=== PATIENT | male | born 1950 | race Hispanic/Latino ===

== ENCOUNTER 2018-08-16 11:21 | Emergency (ER) | payer MEDICARE, BC ==
[2018-08-16] MEDS ORDERED: Sodium Chloride 0.9% 500 ML IV STA (12:10)
--- NOTE | 2018-08-16 12:31 | ED PDOC ---
Arrival/HPI - General Chief Complaint: Upper Extremity Problem/Injury Time Seen by Provider: 08/16/18 11:36 Historian: Patient, Family - History of Present Illness Narrative History of Present Illness (Text): 08/16/18 12:28 67-year-old male presents today with myalgias. Patient states for the past 2 weeks he's been having muscle aches to the upper and lower extremities. Patient was seen as an urgent care and was told to stop his cholesterol medication. He states he was tested for Lyme disease and the test was negative. Patient states he's been taking Motrin with some relief. Patient states he feels like his muscles are aching and his joints are tight. Patient states he is unable to lift both arms up above his head due to achy pain. Patient states he has difficulty putting on socks and shoes due to tightness and stiffness in the legs. He denies chest pain or shortness of breath. He denies URI or flulike symptoms. He denies chest pain or shortness of breath. No fevers or chills. He denies abdominal pain. Denies decreased appetite. Patient states symptoms are worse during the morning and sometimes improves. Patient states that last night he was getting some tingling sensation in the second and third fingers in both hands. He denies weakness in the extremities. No headaches or dizziness. Past Medical History - Provider Review Nursing Documentation Reviewed: Yes - Travel History Have you recently traveled outside [place] w/in the past 3 mons?: No - Tetanus Immunization Tetanus Immunization: Unknown - Cardiac Hx Cardiac Disorders: Yes Hx Atrial Fibrillation: Yes Hx Hypertension: Yes - Pulmonary Hx Respiratory Disorders: No - Neurological Hx Neurological Disorder: No - Psychiatric Hx Substance Use: No Family/Social History - Physician Review Nursing Documentation Reviewed: Yes Family/Social History: Unknown Family HX Smoking Status: Never Smoked Hx Alcohol Use: Yes Frequency of alcohol use: Daily Hx Substance Use: No Allergies/Home Meds Allergies/Adverse Reactions: Allergies No Known Allergies Allergy (Verified 08/16/18 11:32) Home Medications: Home Meds Medication Instructions Recorded Confirmed Digoxin 250 mcg PO DAILY 08/16/18 08/16/18 Ezetimibe/Simvastatin 1 tab PO DAILY 08/16/18 08/16/18 [Ezetimibe-Simvastatin 10-20 mg] Verapamil HCl [Verelan Pm] 240 mg PO DAILY 08/16/18 08/16/18 Review of Systems - Review of Systems Constitutional: absent: Fatigue, Fevers ENT: absent: Sore Throat, Sinus Congestion Respiratory: absent: SOB, Cough Cardiovascular: absent: Chest Pain, Palpitations Gastrointestinal: absent: Abdominal Pain, Constipation, Diarrhea, Nausea, Vomiting Genitourinary Male: absent: Dysuria, Frequency, Hematuria Musculoskeletal: Arthralgias, Myalgias Skin: absent: Rash, Pruritis Neurological: absent: Headache, Dizziness Psychiatric: absent: Anxiety, Depression Physical Exam Vital Signs Reviewed: Yes Vital Signs Temp Pulse Resp BP Pulse Ox 08/16/18 11:32 98.2 F 77 18 159/98 H 99 08/16/18 11:21 98.2 F 70 18 158/92 H 98 Temperature: Afebrile Blood Pressure: Hypertensive Pulse: Regular Respiratory Rate: Normal Appearance: Positive for: Well-Appearing, Non-Toxic, Comfortable Pain Distress: None Mental Status: Positive for: Alert and Oriented X 3 - Systems Exam Head: Present: Atraumatic Mouth: Present: Moist Mucous Membranes Neck: Present: Normal Range of Motion (stiff full rom of neck) Respiratory/Chest: Present: Clear to Auscultation, Good Air Exchange. No: Respiratory Distress, Accessory Muscle Use Cardiovascular: Present: Regular Rate and Rhythm Abdomen: No: Tenderness Upper Extremity: Present: Normal Inspection, NORMAL PULSES, Neurovascularly Intact, Capillary Refill < 2s. No: Normal ROM (limited abduction at shoulders bilaterally. ), Swelling, Erythema Lower Extremity: Present: Normal Inspection Neurological: Present: GCS=15, Speech Normal Skin: Present: Warm, Dry, Normal Color. No: Rashes Psychiatric: Present: Alert, Oriented x 3 Medical Decision Making ED Course and Treatment: 08/16/18 12:31 67yr old male with diffuse bodyaches x 2 weeks. cbc wnl cmp wnl mag wnl trop; wnl cpk: wnl ct necK: FINDINGS: VERTEBRAE: No fracture. Normal alignment. No destructive bony lesion. DISCS/SPINAL CANAL/NEURAL FORAMINA: There is disc degeneration at C5-6 with mild bilateral foraminal stenosis mild disc degeneration at C6-7. PARASPINAL SOFT TISSUES: Unremarkable. OTHER FINDINGS: None. IMPRESSION: No acute bony abnormalities 08/16/18 14:45 pt feeling better after medications. I discussed all results in depth with patient advised follow-up with the traffic rate clerk and orthopedist within the next 2 days. Advised immediate return if symptoms worsen persist or if new concerning symptoms develop Patient verbalizes understanding of discharge instructions and need for immediate followup. all aspects of this case were discussed the attending of record. Impression: Neck pain, bilateral shoulder pain, myalgias Motrin every 6 hours as needed for pain Increase fluids Follow-up with primary care physician within the next 2 days Follow-up with the orthopedist within the next 2 days Return immediately if symptoms worsen persist or if new concerning symptoms develop - Medication Orders Current Medication Orders: Sodium Chloride (Sodium Chloride 0.9%) 500 mls @ 999 mls/hr IV .Q31M STA Stop: 08/16/18 12:40 Last Admin: 08/16/18 12:20 Dose: 999 mls/hr eMAR Start Stop Document 08/16/18 12:20 LA (Rec: 08/16/18 12:21 LA [id number]) Intravenous Solution Start Date 08/16/18 Start Time 12:20 End Date 08/16/18 End time 12:51 Total Infusion Time 31 Disposition/Present on Arrival - Present on Arrival Any Indicators Present on Arrival: No History of DVT/PE: No History of Uncontrolled Diabetes: No Urinary Catheter: No History of Decub. Ulcer: No History Surgical Site Infection Following: None - Disposition Have Diagnosis and Disposition been Completed?: Yes Diagnosis: Neck pain, Shoulder pain, Myalgia Disposition: HOME/ ROUTINE Disposition Time: 14:47 Patient Plan: Discharge Patient Problems: Current Active Problems Problem Status Onset Myalgia Acute Neck pain Acute Shoulder pain Acute Condition: GOOD Discharge Instructions (ExitCare): Muscle and Bone Pain (DC), Generalized Neck Pain (DC) Additional Instructions: Motrin every 6 hours as needed for pain Increase fluids Follow-up with primary care physician within the next 2 days Follow-up with the orthopedist within the next 2 days Return immediately if symptoms worsen persist or if new concerning symptoms develop Prescriptions: Cyclobenzaprine [Cyclobenzaprine HCl] 10 mg PO Q8 #10 tab Ibuprofen [Motrin] 600 mg PO Q6H PRN #20 tab PRN Reason: pain/fever reduction Referrals: Andriy Monahan MD [Staff Provider] - Follow up with primary Adonis Silva DO [Staff Provider] - Follow up with primary Martin Morgan MD [Staff Provider] - Follow up with primary Forms: [employer] ([place]), WORK NOTE
[2018-08-16 12:53] LABS: BASO # 0.04 K/mm3 (0.0-2.0); BASO % 0.3 % (0.0-3.0); EOS # 0.1 (0.0-0.7); EOS % 0.9 % (1.5-5.0); GRAN # 9.98 (1.4-6.5); GRAN % 72.1 % (50.0-68.0); HEMOGLOBIN 14.5 g/dL (14.0-18.0); LYMPH # 2.4 (1.2-3.4); LYMPH % 17.2 % (22.0-35.0); MEAN CELL VOLUME 92.1 fl (80.0-105.0); MEAN CORPUSCULAR HEMOGLOBIN 30.3 pg (25.0-35.0); MEAN PLATELET VOLUME 10.1 fl (7.0-11.0); MONO # 1.3 (0.1-0.6); MONO % 9.5 % (1.0-6.0); RBC 4.78 10^6/uL (3.5-6.1); RED CELL DISTRIBUTION WIDTH 13.4 % (11.5-14.5); WHITE BLOOD COUNT 13.9 10^3/uL (4.5-11.0)
[2018-08-16 12:59] LABS: ALB/GLOB RATIO 1.1 (1.1-1.8); ALBUMIN 4.6 g/dL (3.0-4.8); ALT/SGPT 13 U/L (7-56); AST/SGOT 21 U/L (17-59); BLOOD UREA NITROGEN 17 mg/dL (7-21); CALCIUM 10.2 mg/dL (8.4-10.5); GFR NON-AFRICAN AMERICAN > 60
[2018-08-16 13:12] VITALS: BMI 29.8
[2018-08-16 13:14] VITALS: RESP 18; TEMP 98.2
[2018-08-16 13:33] VITALS: O2SAT 100
[2018-08-16 13:36] LABS: TROPONIN I < 0.01 ng/mL
[2018-08-16 15:08] VITALS: BP 148/76; PULSE 65
--- NOTE | 2018-08-16 15:40 | CT ---
Date of service: 08/16/2018 PROCEDURE: CT Cervical Spine without contrast HISTORY: neck pain radiating into both arms COMPARISON: None available. TECHNIQUE: Axial computed tomography images were obtained of the cervical spine without the use of intravenous contrast. Coronal and sagittal reformatted images were created and reviewed. Radiation dose: Total exam DLP = 650.1 mGy-cm. This CT exam was performed using one or more of the following dose reduction techniques: Automated exposure control, adjustment of the mA and/or kV according to patient size, and/or use of iterative reconstruction technique. FINDINGS: VERTEBRAE: No fracture. Normal alignment. No destructive bony lesion. DISCS/SPINAL CANAL/NEURAL FORAMINA: There is disc degeneration at C5-6 with mild bilateral foraminal stenosis mild disc degeneration at C6-7. PARASPINAL SOFT TISSUES: Unremarkable. OTHER FINDINGS: None. IMPRESSION: No acute bony abnormalities
== END 2018-08-16 16:00 | disposition home or self-care (01) ==
LOC: ED 11:21
DX: M54.2 Cervicalgia (principal); M25.512 Pain in left shoulder; M25.511 Pain in right shoulder; M79.10 Myalgia, unspecified site; I10 Essential (primary) hypertension; I48.91 Unspecified atrial fibrillation
CPT/HCPCS: 72125; 80053; 82550; 83615; 83735; 84484; 85025; 96361; 96374; 99284; J1885; J7040